=== PATIENT | male | born 1975 | race Caucasian/White ===

== ENCOUNTER 2018-10-27 13:02 | Outpatient (CLI) | payer OTHER ==
--- NOTE | 2018-10-27 14:00 | RAD ---
THREE VIEWS LUMBOSACRAL SPINE: COMPARISON: None. HISTORY: Degenerative disk disease and back pain. FINDINGS: Three views lumbosacral spine show normal height and alignment of the vertebral bodies without fractu re or subluxation. The L5-S1 intervertebral disk is narrowed with small surrounding osteophytes. IMPRESSION: Degenerative change of the lower lumbosacral spine without acute osseous abnormality. POS: [facility]
== END 2018-10-27 13:03 | disposition home or self-care (01) ==
LOC: NAV RAD 13:02
PROVIDERS: ATTEND Family Medicine
DX: Z02.71 Encounter for disability determination (principal); M51.36 Other intervertebral disc degeneration, lumbar region; M47.817 Spondylosis without myelopathy or radiculopathy, lumbosacral region
CPT/HCPCS: 72100